=== PATIENT | female | born 1965 | race Caucasian/White ===

== ENCOUNTER → 2017-02-17 | Outpatient (CLI) | payer OTHER ==
[2016-05-26 15:01] VITALS: BP 121/61
[~2017-02-17] MED LIST: ACET500T33 PO; ALBU8.5H6 IH; CETI10TA22 PO; FLUT16SP2 NS; HYDR-971 PO; IBUP200T43 PO; LEVO125T5 PO; LEXAPRO20 MG PO; MONT10TA6 PO; ORPH100T PO; PEMPRO PO; PRED50TA PO; TOPI25CA PO
--- NOTE | 2017-02-17 16:09 | KCIC ---
Examination: CT sinuses without contrast. HISTORY: History of chronic sinusitis, headaches, recurrent ear infection on the left COMPARISON: None TECHNIQUE: Axial CT images of the sinuses were performed without contrast with coronal and sagittal reformatted performed Exposure: One or more of the following individualized dose reduction techniques were utilized for this examination: 1. Automated exposure control 2. Adjustment of the mA and/or kV according to patient size 3. Use of iterative reconstruction technique FINDINGS: The frontal sinuses, sphenoid sinuses, right maxillary sinus aren't opacified. Mild opacification of the left anterior ethmoidal sinus. Minimal mucosal thickening right anterior ethmoidal sinus. There is complete opacification of the left maxillary sinus with some soft tissue density filling the left maxillary sinus and extending into the left anterior ethmoidal sinus. The right mastoid air cells are clear. Minimal opacification of the left mastoid air cells. The bilateral orbital globes appear intact. The orbital fat is maintained. The nasal septum is slightly deviated to the right. IMPRESSION: 1. Complete opacification of the left maxillary sinus with extension of soft tissue into the left anterior ethmoidal sinus likely chronic sinus disease. 2. Minimal opacification of the left mastoid air cells, nonspecific probably otitis media. Electronically signed by: Adriano Dill MD (02/17/2017 4:06 PM) [id number]
== END | disposition home or self-care (01) ==
LOC: KCIC CT 15:03
PROVIDERS: ATTEND Otolaryngology
DX: J34.2 Deviated nasal septum (principal); H66.92 Otitis media, unspecified, left ear; R51 Headache
CPT/HCPCS: 70486

== ENCOUNTER → 2018-01-03 | Outpatient (CLI) | payer OTHER | END | disposition home or self-care (01) | LOC: KCIC CT 10:57 | DX: J32.1 Chronic frontal sinusitis (principal); J34.2 Deviated nasal septum | CPT/HCPCS: 70486 ==

== ENCOUNTER 2018-03-27 10:18 | Emergency (ER) | payer OTHER ==
[~2018-03-27] VITALS: Ht 162.6 cm; Wt 95.3 kg
[~2018-03-27 10:18] MED LIST changes: -IBUP200T43 PO; +IBUP200T44 PO
[2018-03-27 10:40] VITALS: BP 156/81
--- NOTE | 2018-03-27 10:56 | PHYS DOC ---
Past Medical History Past Medical History: Asthma, Depression, High Cholesterol, Hypertension, Hypothyroid, Other Additional Past Medical Histor: SEASONAL ALLERGIES Past Surgical History: Appendectomy, Tubal ligation Smoking: Cigarettes (non-smoker) Alcohol Use: None Drug Use: None Adult General Chief Complaint Chief Complaint: CHEST PAIN HPI HPI Patient is a 53-year-old white female who presents to the emergency room for evaluation. She states that since yesterday, she has been having anterior chest discomfort, described as a heaviness, and overnight she developed radiation of the pain to her back, more to the left side of the midline, from the base of her neck/shoulder blade, down towards her left lower rib cage. The pain is not worsened with physical activity or exertion, but is worsened with deep breathing somewhat. She denies any shortness of breath. She has not had any nausea, vomiting, or diaphoresis. Cardiac risk factors include a family history in both of her parents, as well as a history of hyperlipidemia. The patient is not a diabetic, is not hypertensive, and has no underlying history of cardiac disease. She is somewhat emotionally upset, and she states that "they didn't believe my mother when she had her heart attacks". I did reassure the patient that we would thoroughly evaluate her symptoms. Patient's HEART score is a 2, assuming a negative troponin. Review of Systems Review of Systems Constitutional: Denies fever or chills [] Eyes: Denies change in visual acuity, redness, or eye pain [] HENT: Denies nasal congestion or sore throat [] Respiratory: Denies cough or shortness of breath. Admits pleuritic pain. [] Cardiovascular: No additional information not addressed in HPI [] GI: Denies abdominal pain, nausea, vomiting, bloody stools or diarrhea [] : Denies dysuria or hematuria [] Musculoskeletal: Denies back pain or joint pain [] Integument: Denies rash or skin lesions [] Neurologic: Denies headache, focal weakness or sensory changes [] Endocrine: Denies polyuria or polydipsia [] All other systems were reviewed and found to be within normal limits, except as documented in this note. Current Medications Current Medications Current Medications Medications (Trade) Dose Ordered Sig/Dafne Start Time Stop Time Status Last Admin Dose Admin Iohexol (Omnipaque 300 Mg/ml) 90 ml 1X ONCE 03/27/18 11:45 03/27/18 11:46 DC 03/27/18 11:51 90 ML Morphine Sulfate (Morphine Sulfate) 4 mg 1X ONCE 03/27/18 11:00 03/27/18 11:01 DC Allergies Allergies Allergies Coded Allergies Type Severity Reaction Last Updated Verified No Known Drug Allergies 11/01/13 No Physical Exam Physical Exam PHYSICAL EXAM: CONSTITUTIONAL: Well developed, well nourished HEAD: normocephalic, atraumatic EENT: PERRL, EOMI. Conjunctivae normal color, sclerae non-icteric; moist mucous membranes. NECK: Supple, non-tender; no meningismus. LUNGS: Lungs CTA, breathing even and unlabored. Normal air movement. HEART: Regular rate and rhythm, no murmur CHEST: No deformity; non-tender ABDOMEN: The abdomen is soft, and non-tender, no masses or bruits. EXTREM: Normal ROM; no deformity, no calf tenderness. Normal pulses palpable in all extremities. There is no pedal edema. SKIN: No rash; no diaphoresis NEURO: Alert; normal speech and cognition; CN's grossly intact; strength grossly intact without focal deficit. BACK: No CVA TTP. There is no reproducible musculoskeletal pain of the posterior thorax or lumbar spine. Current Patient Data Vital Signs Vital Signs Date Time Temp Pulse Resp B/P (MAP) Pulse Ox O2 Delivery O2 Flow Rate FiO2 03/27/18 10:40 98.2 87 18 156/81 (106) 98 Room Air 98.2 Lab Values Laboratory Tests Test 03/27/18 11:00 White Blood Count 11.4 x10^3/uL (4.0-11.0) H Red Blood Count 4.30 x10^6/uL (3.50-5.40) Hemoglobin 12.8 g/dL (12.0-15.5) Hematocrit 37.4 % (36.0-47.0) Mean Corpuscular Volume 87 fL (79-100) Mean Corpuscular Hemoglobin 30 pg (25-35) Mean Corpuscular Hemoglobin Concent 34 g/dL (31-37) Red Cell Distribution Width 12.6 % (11.5-14.5) Platelet Count 298 x10^3/uL (140-400) Neutrophils (%) (Auto) 56 % (31-73) Lymphocytes (%) (Auto) 20 % (24-48) L Monocytes (%) (Auto) 11 % (0-9) H Eosinophils (%) (Auto) 13 % (0-3) H Basophils (%) (Auto) 1 % (0-3) Neutrophils # (Auto) 6.3 x10^3uL (1.8-7.7) Lymphocytes # (Auto) 2.3 x10^3/uL (1.0-4.8) Monocytes # (Auto) 1.2 x10^3/uL (0.0-1.1) H Eosinophils # (Auto) 1.5 x10^3/uL (0.0-0.7) H Basophils # (Auto) 0.1 x10^3/uL (0.0-0.2) Platelet Estimate Pending D-Dimer (Emily) 0.27 ug/mlFEU (0.00-0.50) Sodium Level 137 mmol/L (136-145) Potassium Level 4.0 mmol/L (3.5-5.1) Chloride Level 105 mmol/L (98-107) Carbon Dioxide Level 25 mmol/L (21-32) Anion Gap 7 (6-14) Blood Urea Nitrogen 19 mg/dL (7-20) Creatinine 0.6 mg/dL (0.6-1.0) Estimated GFR (Cockcroft-Gault) 105.0 BUN/Creatinine Ratio 32 (6-20) H Glucose Level 113 mg/dL (70-99) H Calcium Level 9.5 mg/dL (8.5-10.1) Total Bilirubin 0.5 mg/dL (0.2-1.0) Aspartate Amino Transferase (AST) 18 U/L (15-37) Alanine Aminotransferase (ALT) 34 U/L (14-59) Alkaline Phosphatase 139 U/L (46-116) H Creatine Kinase 79 U/L (26-192) Creatine Kinase MB (Mass) 1.6 ng/mL (0.0-3.6) Creatine Kinase MB Relative Index 2.0 % (0-4) Troponin I Quantitative < 0.017 ng/mL (0.000-0.055) KM-Qld-O-Type Natriuretic Peptide 64 pg/mL (0-124) Total Protein 7.2 g/dL (6.4-8.2) Albumin 3.7 g/dL (3.4-5.0) Albumin/Globulin Ratio 1.1 (1.0-1.7) Lipase 96 U/L (73-393) Laboratory Tests 03/27/18 11:00 Laboratory Tests 03/27/18 11:00 EKG EKG [Normal sinus rhythm with a normal rate, normal axis, normal intervals, there are no acute ischemic ST/T changes.] Radiology/Procedures Radiology/Procedures [PROCEDURE: CT ANGIOGRAPHY CHEST CTA of the chest with and without contrast, 03/27/2018: HISTORY: Back pain, possible aortic dissection Multidetector CT imaging was performed prior to and following an IV bolus injection of iodinated contrast material. Multiplanar reconstructions were produced including 3-D volume rendered reconstructions of the aorta. The thoracic aorta is of normal caliber. There is no evidence of aneurysm or dissection. No significant atherosclerotic plaquing is seen. The central pulmonary arteries were fairly well opacified and show no abnormality. There is an elongated triangular-shaped density in the anterior mediastinum. On the axial images it measures approximately 1 x 2.5 cm in greatest dimension. On the sagittal images it measures 5 cm in craniocaudad extent. 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 No mediastinal or hilar adenopathy is seen. No pulmonary infiltrate or mass is seen. There is no evidence of pleural fluid. Mild scattered spurs are present in the spine. IMPRESSION: 1. No significant aortic abnormality is detected. 2. Unusual elongated soft tissue density in the anterior mediastinum suggesting a thymic remnant. A neoplastic etiology is less likely. CT follow-up is suggested.] PROCEDURE: PORTABLE CHEST 1V Portable chest, 03/27/2018: HISTORY: Chest pain The heart size and pulmonary vascularity are normal. No pulmonary infiltrate is seen. There is no evidence of pleural fluid. IMPRESSION: No acute cardiopulmonary abnormality is detected. Course & Med Decision Making Course & Med Decision Making Pertinent Labs and Imaging studies reviewed. (See chart for details) [1:25 PM: The patient's condition remains stable.I had an extensive discussion with the patient about the limitations of ER cardiac evaluation in definitively ruling out acute coronary syndrome. We discussed limitation of the ER evaluation and a singe ED troponin in r/o AMI, and the risks involved in missed diagnosis of acute coronary syndrome including or permanent debility. I recommended overnight observation for further formal cardiac evaluation to rule out acute coronary syndrome. After expressing understanding of the limitations of ER cardiac evaluation, as well as the risks of missed diagnosis, the patient declined further cardiac evaluation at this time. The patient was mentally competent, and given opportunity to ask questions about the diagnosis and recommended plan of care. I stressed the importance of outpatient follow-up, and returning to the emergency department for new or worsening symptoms, or if the patient is agreeable to undergo further cardiac evaluation. ] Dragon Disclaimer Dragon Disclaimer This electronic medical record was generated, in whole or in part, using a voice recognition dictation system. Departure Departure Impression: Primary Impression: Chest pain Disposition: HOME, SELF-CARE Condition: STABLE Referrals: GENE DAWSON DO (PCP) HANNAH GLEASON MD Patient Instructions: Chest Pain (Nonspecific) Additional Instructions: Begin taking aspirin 81 mg once daily until instructed otherwise by a physician. CT scan done today showed a small mass in the mediastinum which is thought by the radiologist to represent residual thymic tissue. This may not be pathologic , but does warrant further outpatient evaluation and likely repeat CAT scanning after a period of time to ensure stability. Contact your primary care physician to arrange outpatient follow-up. KRIS LUNDBERG MD Mar 27, 2018 10:56
[2018-03-27] MEDS ORDERED: MORPHINE SULFATE 4 MG/ML DISP.SYRIN. IV ONE (11:00)
[2018-03-27 11:07] LABS: BASO # 0.1 x10^3/uL (0.0-0.2); BASO % 1 % (0-3); EOS # 1.5 x10^3/uL (0.0-0.7); EOS % 13 % (0-3); HEMATOCRIT 37.4 % (36.0-47.0); HEMOGLOBIN 12.8 g/dL (12.0-15.5); LYMPH # 2.3 x10^3/uL (1.0-4.8); LYMPH % 20 % (24-48); MEAN CORPUSCULAR HEMOGLOBIN 30 pg (25-35); MEAN CORPUSCULAR HGB CONC 34 g/dL (31-37); MEAN CORPUSCULAR VOLUME 87 fL (79-100); MONO # 1.2 x10^3/uL (0.0-1.1); MONO % 11 % (0-9); NEUT # 6.3 x10^3uL (1.8-7.7); NEUT % 56 % (31-73); PLATELET COUNT 298 x10^3/uL (140-400); RED CELL DISTRIBUTION WIDTH 12.6 % (11.5-14.5); WHITE BLOOD COUNT 11.4 x10^3/uL (4.0-11.0)
[2018-03-27 11:20] LABS: CALCIUM 9.5 mg/dL (8.5-10.1); CREATININE 0.6 mg/dL (0.6-1.0)
[2018-03-27 11:27] LABS: ALBUMIN 3.7 g/dL (3.4-5.0); ALBUMIN/GLOBULIN RATIO 1.1 (1.0-1.7); TOTAL BILIRUBIN 0.5 mg/dL (0.2-1.0); TOTAL PROTEIN 7.2 g/dL (6.4-8.2)
[2018-03-27] MEDS ORDERED: IOHEXOL 300 MG/ML 100ML VIAL. IV ONE (11:45)
--- NOTE | 2018-03-27 11:54 | RAD ---
Portable chest, 03/27/2018: HISTORY: Chest pain The heart size and pulmonary vascularity are normal. No pulmonary infiltrate is seen. There is no evidence of pleural fluid. IMPRESSION: No acute cardiopulmonary abnormality is detected. Electronically signed by: Jim Hubbard MD (03/27/2018 11:50 AM) [facility]
--- NOTE | 2018-03-27 12:50 | RAD ---
CTA of the chest with and without contrast, 03/27/2018: HISTORY: Back pain, possible aortic dissection Multidetector CT imaging was performed prior to and following an IV bolus injection of iodinated contrast material. Multiplanar reconstructions were produced including 3-D volume rendered reconstructions of the aorta. The thoracic aorta is of normal caliber. There is no evidence of aneurysm or dissection. No significant atherosclerotic plaquing is seen. The central pulmonary arteries were fairly well opacified and show no abnormality. There is an elongated triangular-shaped density in the anterior mediastinum. On the axial images it measures approximately 1 x 2.5 cm in greatest dimension. On the sagittal images it measures 5 cm in craniocaudad extent. 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 No mediastinal or hilar adenopathy is seen. No pulmonary infiltrate or mass is seen. There is no evidence of pleural fluid. Mild scattered spurs are present in the spine. IMPRESSION: 1. No significant aortic abnormality is detected. 2. Unusual elongated soft tissue density in the anterior mediastinum suggesting a thymic remnant. A neoplastic etiology is less likely. CT follow-up is suggested. PQRS Compliance Statement: One or more of the following individualized dose reduction techniques were utilized for this examination: 1. Automated exposure control 2. Adjustment of the mA and/or kV according to patient size 3. Use of iterative reconstruction technique Electronically signed by: Jim Hubbard MD (03/27/2018 12:47 PM) [facility]
[2018-03-27 13:29] LABS: % BANDS 1 % (0-9); % EOS 17 % (0-5); % LYMPHS 23 % (24-48); % MONOS 7 % (0-10); % SEGS 52 % (35-66); PLT ESTIMATE ADEQUATE (ADEQUATE)
[2018-03-27] MEDS ORDERED: ASPIRIN CHEWABLE 81 MG TABLET. PO ONE (13:30)
--- NOTE | 2018-03-28 06:30 | EKG ---
[facility] [address] [place] [address] Test Date: 2018-03-27 Test Time: 10:30:33 Pat Name: MELO VELASQUEZ Department: Room: Gender: F Sociology Research Assistant: : [id number] Requested By: KRIS LUNDBERG Order Number: [id number] Reading MD: Measurements Intervals Theresa Rate: 75 P: 41 ID: [id number] QRS: 46 QRSD: 80 T: 47 QT: 378 QTc: 425 Interpretive Statements SINUS RHYTHM QRS(T) CONTOUR ABNORMALITY CONSIDER ANTEROLATERAL MYOCARDIAL DAMAGE POSSIBLY ABNORMAL ECG RI6.01 No previous ECG available for comparison
== END 2018-03-27 13:43 | disposition home or self-care (01) ==
LOC: ER 10:18
DX: R07.89 Other chest pain (principal); E78.00 Pure hypercholesterolemia, unspecified; E03.9 Hypothyroidism, unspecified; J45.909 Unspecified asthma, uncomplicated; Z90.89 Acquired absence of other organs; Z98.51 Tubal ligation status
CPT/HCPCS: 36415; 71045; 71275; 80053; 82553; 83690; 83880; 84484; 85007; 85025; 85379; 93005; 99285; Q9967

== ENCOUNTER → 2018-08-25 | Outpatient (CLI) | payer OTHER ==
[~2018-08-25] MED LIST changes: +CONTRAST GIVEN. MC PRN; +HYDR-3164 PO; -HYDR-971 PO; +IOHEXOL 300 MG/ML 100ML VIAL. IV ONE
--- NOTE | 2018-08-25 13:29 | RAD ---
Examination: CT chest with IV contrast HISTORY: History of follow-up soft tissue density in the anterior mediastinum. COMPARISON: 03/27/2018 TECHNIQUE: Axial CT images of chest were performed with IV contrast. Coronal and sagittal reformats are performed Exposure: One or more of the following individualized dose reduction techniques were utilized for this examination: 1. Automated exposure control 2. Adjustment of the mA and/or kV according to patient size 3. Use of iterative reconstruction technique FINDINGS: The visualized thyroid gland grossly appears unremarkable. Central airways are patent. The heart size grossly appears unremarkable. The caliber of the aorta grossly appears unremarkable. Small calcified granuloma identified in the right lung base. Otherwise the lungs are clear. The previously visualized small soft tissue density identified in the anterior mediastinum identified likely thymic remnant similar to prior exam. The visualized liver, spleen, adrenals grossly appears unremarkable. Mild degenerative changes thoracic spine. IMPRESSION: 1. The previously visualized small soft tissue density identified in the anterior mediastinum likely thymic remnant is similar to prior exam Electronically signed by: Adriano Dill MD (08/25/2018 1:25 PM) [id number]
== END | disposition home or self-care (01) ==
LOC: CT 10:56
PROVIDERS: ATTEND Family Medicine
DX: R93.89 Abnormal findings on diagnostic imaging of other specified body structures (principal); M79.89 Other specified soft tissue disorders
CPT/HCPCS: 71260; Q9967